=== PATIENT | male | born 1975 | race Caucasian/White ===

== ENCOUNTER 2025-04-12 06:19 | Day surgery (SDC) | payer OTHER, SELFPAY | END 2025-04-12 10:18 | disposition home or self-care (01) | LOC: GI 06:19 | PROVIDERS: ATTENDING PHYSICIAN Student in an Organized Health Care Education/Training Program | DX: Z12.11 Encounter for screening for malignant neoplasm of colon (principal); D12.3 Benign neoplasm of transverse colon; K63.5 Polyp of colon; K63.89 Other specified diseases of intestine; Z83.710 Family history of adenomatous and serrated polyps | CPT/HCPCS: 45385; 45380; 88305 ==